=== PATIENT | female | born 1975 | race Caucasian/White ===

== ENCOUNTER 2017-03-10 12:39 | Emergency (ER) | payer OTHER ==
[2017-03-10 13:08] VITALS: BP 173/95; PULSE 94; RESP 18; TEMP 98.5; O2SAT 99
[2017-03-10] MEDS ORDERED: Sodium Chloride 0.9% 1,000 ML IV STA (13:55)
--- NOTE | 2017-03-10 14:20 | ED PDOC ---
HPI: Female Pain Time Seen by Provider: 03/10/17 13:35 Chief Complaint (Nursing): Female Genitourinary Chief Complaint (Provider): abdominal cramping, vaginal spotting History Per: Patient History/Exam Limitations: no limitations Onset/Duration Of Symptoms: Days (5), Gradual Current Symptoms Are (Timing): Intermittent Episodes Quality Of Discomfort: Cramping Associated Symptoms: Nausea, Diarrhea. denies: Fever, Vomiting, Loss Of Appetite, Back Pain Alleviating Factors: None Additional Complaint(s): 41yo female found out she was several weeks ago, LMP Nov 6, went to Dr Cameron at and told shes having a miscarriage after 2 BHCG showed levels dropping. Presents today concerned with persistent spotting and cramping, denies weakness or dizziness. Also notes mild diarrhea and intermittent nausea. Past Medical History Reviewed: Historical Data, Nursing Documentation, Vital Signs Vital Signs: Last Vital Signs Temp 98.5 F 03/10/17 12:58 Pulse 94 H 03/10/17 12:58 Resp 18 03/10/17 12:58 BP 173/95 H 03/10/17 12:58 Pulse Ox 99 03/10/17 12:58 - Medical History PMH: No Chronic Diseases - Surgical History Surgical History: No Surg Hx - Family History Family History: States: Unknown Family Hx - Living Arrangements Living Arrangements: With Family - Social History Ex-Smoker (has not smoked in the last 12 months): Yes (quit one month ago) Alcohol: None - Allergies Allergies/Adverse Reactions: Allergies Allergy/AdvReac Type Severity Reaction Status Date / Time No Known Allergies Allergy Verified 03/10/17 12:57 Review of Systems ROS Statement: Except As Marked, All Systems Reviewed And Found Negative Constitutional: Negative for: Fever, Chills ENT: Negative for: Nose Discharge Cardiovascular: Negative for: Chest Pain Respiratory: Negative for: Cough, Shortness of Breath Gastrointestinal: Positive for: Nausea, Diarrhea. Negative for: Vomiting Genitourinary Female: Positive for: Vaginal Bleeding, Pelvic Pain. Negative for : Hematuria, Vaginal Discharge Musculoskeletal: Negative for: Neck Pain, Leg Pain Skin: Negative for: Rash, Lesions Neurological: Negative for: Weakness, Numbness, Dizziness Physical Exam - Reviewed Nursing Documentation Reviewed: Yes Vital Signs Reviewed: Yes - Physical Exam Appears: Positive for: Well, Non-toxic, No Acute Distress Head Exam: Positive for: ATRAUMATIC, NORMAL INSPECTION, NORMOCEPHALIC Skin: Positive for: Normal Color, Warm, DRY Eye Exam: Positive for: EOMI, Normal appearance, PERRL ENT: Positive for: Normal ENT Inspection Neck: Positive for: Normal, Painless ROM Cardiovascular/Chest: Positive for: Regular Rate, Rhythm Respiratory: Positive for: CNT, Normal Breath Sounds Gastrointestinal/Abdominal: Positive for: Bowel Sounds, Soft. Negative for: Tenderness, Guarding Back: Positive for: Normal Inspection Extremity: Positive for: Normal ROM Neurologic/Psych: Positive for: Alert, Oriented. Negative for: Motor/Sensory Deficits - ECG O2 Sat by Pulse Oximetry: 99 Medical Decision Making Medical Decision Making: workup for incomplete initiated Disposition - Disposition
[2017-03-10 14:47] LABS: RBC URINE 305 /hpf (0-3); URINE BACTERIA RARE (<OCC); URINE BILIRUBIN NEGATIVE (NEGATIVE); URINE BLOOD LARGE (NEGATIVE); URINE COLOR YELLOW (YELLOW); URINE GLUCOSE (UA) NEG (Normal); URINE KETONE NEGATIVE (NEGATIVE); URINE LEUKOCYTE ESTERASE NEG Leu/uL (Negative); URINE PROTEIN 30 mg/dL (NEGATIVE); URINE UROBILINOGEN 0.2-1.0 mg/dL (0.2-1.0); WBC URINE 4 /hpf (0-5)
[2017-03-10 14:49] LABS: BASO % 0.3 % (0.0-2.0); EOS % 0.5 % (0.0-4.0); HEMATOCRIT 37.4 % (34.0-47.0); LYMPH # 0.8 K/uL (1.0-4.3); MEAN CELL VOLUME 79.5 fl (81.0-99.0); MEAN CORPUSCULAR HEMOGLOBIN 24.7 pg (27.0-31.0); MEAN CORPUSCULAR HGB CONC 31.1 g/dL (33.0-37.0); MEAN PLATELET VOLUME 7.7 fl (7.2-11.7); MONO # 0.4 K/uL (0.0-0.8); MONO % 3.8 % (0.0-10.0); NEUT # 9.5 K/uL (1.8-7.0); NEUT % 88.4 % (50.0-75.0); PLATELET COUNT 296 K/uL (130-400); RED CELL DISTRIBUTION WIDTH 18.7 % (11.5-14.5); WHITE BLOOD COUNT 10.8 K/uL (4.8-10.8)
[2017-03-10 14:50] LABS: BLOOD UREA NITROGEN 10 mg/dl (7-17); CALCIUM 8.7 mg/dL (8.4-10.2); CARBON DIOXIDE 23 mmol/L (22-30); CHLORIDE 107 mmol/L (98-107); GFR AFRICAN-AMERICAN > 60; GLUCOSE,RANDOM 89 mg/dL (65-105); POTASSIUM 3.9 MMOL/L (3.6-5.0); SODIUM 141 mmol/l (132-148)
[2017-03-10 15:55] LABS: NEUTROPHIL 88 % (42-75); TOTAL CELLS COUNTED 100
--- NOTE | 2017-03-10 21:26 | ED PDOC ---
- Laboratory Results Result Diagrams: 03/10/17 14:26 03/10/17 14:26 - ECG O2 Sat by Pulse Oximetry: 99 (RA) Pulse Ox Interpretation: Normal Medical Decision Making Medical Decision Makin:00 Patient signed out to me from Dr. Ceballos. Ultrasound pending. 20:30 IMPRESSION: No intrauterine gestational sac is visualized. The endometrial stripe is mildly heterogeneous and demonstrates mild vascular flow on Doppler imaging. Given the provided clinical information, differential diagnosis favors spontaneous with retained products of conception. However, an occult ectopic or an intrauterine gestation that is too early to visualize cannot be excluded. Saw pt. at bedside and explained results. Pt. to f/u w/ OB in 2 days or return to ER for repeat U/S and beta-hcg. Pelvic rest instructions given. Told to return for significant bleeding, worsening pain, fevers, intractable vomiting, or other concerning symptoms. Scribe Attestation: Documented by Suri Fraser, acting as a scribe for Carlo Hagen MD. Provider Scribe Attestation: All medical record entries made by the Scribe were at my direction and personally dictated by me. I have reviewed the chart and agree that the record accurately reflects my personal performance of the history, physical exam, medical decision making, and the department course for this patient. I have also personally directed, reviewed, and agree with the discharge instructions and disposition. Disposition - Clinical Impression Clinical Impression: Abdominal pain affecting - POA Present On Arrival: None - Disposition Referrals: Ismael Oliveira DO [Staff Provider] - Disposition: Routine/Home Disposition Time: 20:30 Condition: STABLE Additional Instructions: Followup with GI and [facility] specialists as directed. It was recommended you receive a CT scan today, but you deferred it and recommended you return to ER for any worse or persistent or new symptoms. Prescriptions: Doxylamine/Pyridoxine HCl (B6) [Rosina Rm 10-10 mg Tablet] 1 each PO DAILY # 20 tablet. Instructions: Abdominal Pain in (ED) Forms: [facility] (Lithuanian)
--- NOTE | 2017-03-11 08:46 | US ---
HISTORY: bleeding COMPARISON: None available. TECHNIQUE: Transabdominal and transvaginal pelvic ultrasound was performed with longitudinal and transverse images submitted for interpretation. FINDINGS: UTERUS: Measures 8.0 x 7.5 x 5.7 cm. Uterus is anteverted with moderately heterogeneous echotexture throughout the myometrium without focal mass or identified nevertheless. ENDOMETRIUM: Measures 6.7 mm in diameter. No intrauterine gestation identified. CERVIX: No cervical abnormality identified. RIGHT OVARY: Measures 2.2 x 1.0 x 1.2 cm. No solid mass. Normal flow. LEFT OVARY: Measures 2.6 x 2.4 x 1.8 cm. No solid mass. Normal flow. FREE FLUID: No significant free fluid noted. OTHER FINDINGS: Ectopic is not completely excluded. IMPRESSION: No intrauterine gestation identified. Ectopic gestation not clearly excluded. None is proven however. Consider potential failure versus early nonvisualized intrauterine gestation. Follow-up transvaginal pelvic ultrasound is recommended in 1 week as well as serial serum beta HCG analysis.
== END 2017-03-10 19:46 | disposition home or self-care (01) ==
LOC: H.ER 12:39
DX: O26.899 Other specified pregnancy related conditions, unspecified trimester (principal)
CPT/HCPCS: 76817; 80048; 81003; 81025; 84702; 85025; 86850; 86900; 96360; 99282; J2405; J7040